=== PATIENT | male | born 1980 ===

== ENCOUNTER 2016-12-08 10:23 | Outpatient (CLI) | payer BC ==
--- NOTE | 2016-12-08 11:35 | XRay Report ---
LUMBAR SPINE RADIOGRAPHS: INDICATION: V85.21. COMPARISON: None similar. FINDINGS: AP and lateral lumbar spine radiographs demonstrate preserved vertebral body stature, alignment and disc heights. Nonobstructive bowel gas pattern. Normal bilateral SI joints. CONCLUSION: Normal exam. Thank you for the opportunity to participate in this patient's care.
--- NOTE | 2016-12-08 11:37 | XRay Report ---
Cervical spine 3 views: History: Cervical pain. Findings: Normal height of vertebral bodies and intervertebral discs. Normal articular surfaces. No fracture. Normal prevertebral soft tissue. Impression: Essentially negative cervical spine.
== END 2016-12-08 10:24 | disposition home or self-care (01) ==
LOC: SPVIMAG 10:23
PROVIDERS: ATTEND Internal Medicine
DX: M54.2 Cervicalgia (principal); Z68.25 Body mass index [BMI] 25.0-25.9, adult
CPT/HCPCS: 72040; 72100